=== PATIENT | male | born 1985 | race African-American/Black ===

== ENCOUNTER 2019-11-23 02:48 | Emergency (ER) | payer SELFPAY ==
[~2019-11-23] VITALS: Ht 185.4 cm; Wt 108.9 kg
[2019-11-23 03:19] VITALS: BP 127/78
[2019-11-23] MEDS ORDERED: cefTRIAXone SOD 1,000 MG VL IM ONE (06:00)
[2019-11-23] MEDS ORDERED: cefTRIAXone SOD 1,000 MG VL ONE (06:03)
== END 2019-11-23 06:45 | disposition home or self-care (01) ==
LOC: ER 02:48
DX: L03.114 Cellulitis of left upper limb (principal)
CPT/HCPCS: 96372; 99283; J0696